=== PATIENT | male | born 1965 | race Caucasian/White ===

== ENCOUNTER 2020-03-14 05:06 | Emergency (ER) | payer BC, SELFPAY ==
--- NOTE | ~2020-03-14 | XR_ITS ---
XR chest 1V portable 03/14/2020 06:34 Indication: Left-sided neck and shoulder pain for 1-2 days Procedure: AP portable chest Comparison: No prior studies for comparison. Findings: Cardiomegaly. Status post median sternotomy for CABG. Mild interstitial edema. No pleural e ffusion or pneumothorax. Impression: 1: Cardiomegaly with mild interstitial edema. Reviewed, dictated and finalized at location A. Impression: 1: Cardiomegaly with mild interstitial edema.
[2020-03-14 05:11] VITALS: BP 178/109; PULSE 77; RESP 16; TEMP 36.6; O2SAT 98
[2020-03-14 05:49] VITALS: BP 153/106; PULSE 76; RESP 16; O2SAT 98
--- NOTE | 2020-03-14 06:01 | ECG_ITS ---
Measurements Intervals [place] Rate: 66 P: 42 VA: 152 QRS: 60 QRSD: 109 T: 58 QT: 406 QTc: 425 Interpretive Statements SINUS RHYTHM BORDERLINE ST-T WAVE ABNORMALITY- ANTERIOR LEADS BORDERLINE ECG Electronically Signed On 03-14-2020 7:32:55 CDT by Oleg Callejas D.O.
[2020-03-14 06:18] VITALS: BP 151/111; PULSE 70; RESP 20; O2SAT 97
[2020-03-14] MEDS: KETOROLAC 30 MG/ML VIAL (*BKC) IV PUSH (06:21)
--- NOTE | 2020-03-14 06:22 | ED.GENADULT ---
HPI - General Adult General Chief complaint: Unspecified Stated complaint: neck and shoulder pressure Time Seen by Provider: 03/14/20 05:51 Source: RN notes reviewed History of Present Illness HPI narrative: Patient presents emergency department from home for left neck and shoulder pain. Patient states the symptoms began 2 days ago with progressive stiffness and soreness in his left posterior neck and shoulder. Patient states that symptoms began after he was backing up his trailer and turned his head to look over his right shoulder and felt a spasm in his neck. He states the pain is worse with rotation of the head states there is some radiation into the anterior chest and upper back he denies any fevers or chills shortness of breath abdominal pain. Patient states he has been having problems with some nasal congestion for the past several days he denies any sore throat or cough Related Data Home Medications Medication Instructions Recorded Confirmed Spiriva with HandiHaler 1 cap INHALATION DAILY 08/19/19 08/19/19 albuterol sulfate 2 puff INHALATION QID PRN 08/19/19 08/19/19 aspirin 325 mg PO DAILY 08/19/19 08/19/19 atenolol 25 mg PO DAILY 08/19/19 08/19/19 lorazepam 0.5 mg PO BID 08/19/19 08/19/19 multivitamin 1 tablet PO DAILY 08/19/19 08/19/19 simvastatin 40 mg PO DAILY 08/19/19 08/19/19 Allergies Allergy/AdvReac Type Severity Reaction Status Date / Time No Known Allergies Allergy Verified 03/14/20 05:16 Review of Systems Review of Systems: Narrative: Gen.: Denies fevers or chills Eyes: Denies eye pain or visual change ENT: Reports congestion Respiratory: Denies shortness of breath or cough CV: Denies chest pain or palpitations GI: Denies abdominal pain nausea, emesis or diarrhea denies burning, urgency, frequency or hematuria Musculoskeletal: See HPI Neuro: Denies numbness, tingling, weakness or focal weakness Skin: Denies rash Except as documented, all other systems reviewed and negative [facility] Past Medical History Medical History COPD (chronic obstructive pulmonary disease) Dyslipidemia Hypertension Morbid obesity Social History Social History (Updated 03/14/20 @ 06:54 by Damian Alba DO) Smoking status: Never smoker Exam Narrative: Exam Narrative: APPEARANCE: No acute distress, nontoxic, resting in bed EYES: EOMI HEENT: Normocephalic, atraumatic, TMs clear bilaterally, nares patent, oral mucosa moist, no erythema exudate posterior pharynx Neck: Supple no midline tenderness palpation tender palpation over left paravertebral C5-7 and left trapezius muscle with muscle spasm palpated pain with rotation of the neck to the left greater than 45 degrees RESPIRATORY: No respiratory distress Clear to auscultation bilaterally with no rhonchi wheezing or rales. CARDIOVASCULAR: Regular rate and rhythm without murmurs rubs or gallops. Bilateral radial pulse 2+ ABDOMINAL: Soft, nontender, nondistended, no rebound or guarding MUSCULOSKELETAl: Moves all extremities. No clubbing, cyanosis or edema. NEURO: Awake and alert. Following commands, speech normal, no focal deficits SKIN:: Warm, dry. No rashes lesions or abrasions PSYCHIATRIC: Normal affect/mood, Course Course Emergency Course: Discussed with patient results of workup and diagnosis. Discussed need for follow-up with primary care, proper use of medication, and reasons to return to the emergency department. Patient understands and agrees to current treatment plan patient states her nasal congestion is taking [id number] Mucinex and will continue to take Vital Signs Vital signs: Vital Signs Temperature 97.8 F 03/14/20 05:11 Pulse Rate 77 03/14/20 05:11 Respiratory Rate 16 03/14/20 05:11 Blood Pressure 178/109 H 03/14/20 05:11 Pulse Oximetry 98 03/14/20 05:11 Temperature 97.8 F 03/14/20 05:11 Pulse Rate 64 03/14/20 07:04 Respiratory Rate 20 03/14/20 07:04 Blood Pres
[2020-03-14 06:33] LABS: Basophils Percent Auto 0.6 % (0.2-1.2); Eosinophils Absolute Auto 0.1 K/mm3 (0-0.3); Eosinophils Percent Auto 2.7 % (0-4.4); Hematocrit 42.4 % (42.0-52.0); Hemoglobin 14.8 g/dL (14.0-18.0); Immature Granulocyte Absolute 0.01 K/mm3 (0.00-0.031); Immature Granulocyte Percent A 0.2 % (0-0.5); Lymphocytes Absolute Auto 1.16 K/mm3 (0.9-3.2); Lymphocytes Percent Auto 22.4 % (18.3-44.2); Mean Corpuscular HGB Conc 34.9 g/dl (32-36); Mean Corpuscular Volume 88.7 fl (80-100); Mean Platelet Volume 9.5 fl (7.4-10.4); Monocytes Absolute Auto 0.4 K/mm3 (0.1-0.6); Monocytes Percent Auto 7.3 % (2.6-8.5); Neutrophils Absolute Auto 3.5 K/mm3 (1.3-6.7); Neutrophils Percent Auto 66.8 % (45.5-73.1); Platelet Count Result 176 k/mm3 (150-375); Red Blood Count 4.78 M/mm3 (4.6-6.20); Red Cell Distribution Width 12.7 % (11.5-14.5); White Blood Count 5.2 K/mm3 (4.5-10.0)
[2020-03-14 06:40] VITALS: BP 149/100; PULSE 68; RESP 20; O2SAT 97
[2020-03-14 06:43] LABS: INR 0.9; Prothrombin Time 12.2 Seconds (11.1-14.7)
[2020-03-14 06:44] LABS: Partial Thromboplastin Time 35.3 SECONDS (22.3-36.8)
[2020-03-14 06:45] LABS: Blood Urea Nitrogen 13 mg/dL (9-20); Calcium 9.1 mg/dL (8.4-10.2); Carbon Dioxide 28 mmol/L (22-30); Chloride 103 mmol/L (98-107); Estimated CRCL calculation 101 ml/min; Estimated Glomerular Filt Rate > 60; Glucose 121 mg/dL (75-110); Potassium 4.1 mmol/L (3.4-5.0); Sodium 140 mmol/L (137-145)
[2020-03-14 06:56] LABS: Troponin I < 0.012 ng/mL (0.000-0.034)
[2020-03-14 07:04] VITALS: BP 157/106; PULSE 64; RESP 20; O2SAT 98
[2020-03-14 07:35] VITALS: BP 141/95; PULSE 62; RESP 18; O2SAT 96
== END 2020-03-14 07:36 | disposition home or self-care (01) ==
PROVIDERS: Emergency Provider Emergency Medicine; PCP Nurse Practitioner Family
DX: S16.1XXA Strain of muscle, fascia and tendon at neck level, initial encounter (principal); M62.830 Muscle spasm of back; J44.9 Chronic obstructive pulmonary disease, unspecified; E78.5 Hyperlipidemia, unspecified; I10 Essential (primary) hypertension; E66.01 Morbid (severe) obesity due to excess calories; Z68.41 Body mass index [BMI] 40.0-44.9, adult; X50.9XXA Other and unspecified overexertion or strenuous movements or postures, initial encounter
CPT/HCPCS: 36415; 71045; 80048; 84484; 85025; 85610; 85730; 93005; 96374; 96375; 99284; J1885; J3360

== ENCOUNTER → 2021-05-20 00:42 | Outpatient (CLI) | payer BC, SELFPAY ==
[2021-05-21 02:18] LABS: SARS-CoV-2 RNA PCR Negative
== END ==
PROVIDERS: PCP Nurse Practitioner Family; Visit Provider Nurse Practitioner Family
DX: Z20.822 Contact with and (suspected) exposure to COVID-19 (principal)
CPT/HCPCS: C9803; U0003; U0005